=== PATIENT | female | born 1970 | race African-American/Black ===

== ENCOUNTER 2017-12-09 11:36 | Emergency (ER) | payer BC, OTHER ==
[~2017-12-09] VITALS: Ht 162.6 cm; Wt 108.9 kg
[~2017-12-09 11:36] MED LIST: ASPIRIN81 M2; BACTRIM DS TAB1 EACH PO; GLUCOPHAGE XR500 MG PO; LISINOPRIL-HCT1 EAC2 PO; NORCO 5-325 TA1 EACH PO; NORVASC 5 MG TAB5 MG PO; POTASSIUM20; VITAMIN K100 MCG
[2017-12-09 12:22] LABS: ABSOLUTE NEUTROPHILS 1.4 thou/uL (1.4-8.2); BASOPHILS 0.6 % (0.0-2.0); EOSINOPHILS 0.4 % (0.0-3.0); HEMOGLOBIN 12.3 gm/dL (12.0-15.0); LYMPHOCYTES 39.7 % (24.0-44.0); MCH 30.5 pg (26.0-34.0); MCHC 34.2 g/dL (28.0-37.0); MCV 89.1 fL (80.0-100.0); PLATELET COUNT 212 thou/uL (150-400); POLYS 47.3 % (36.0-66.0); RBC 4.04 mil/uL (4.20-5.00); RDW 13.8 % (10.5-14.5)
[2017-12-09 12:34] LABS: CALCIUM 9.2 mg/dL (8.5-10.1); CREATININE 0.9 mg/dL (0.6-1.0)
[2017-12-09] MEDS ORDERED: PROMETHAZINE-D118 ML PO (12:53)
[2017-12-09] MEDS ORDERED: DOXYCYCLINE 10100 MG PO (12:53)
[2017-12-09] MEDS ORDERED: NORVASC5 MG PO (12:53)
[2017-12-09] MEDS ORDERED: PREDNISONE 20 M20 MG PO (12:53)
[2017-12-09] MEDS ORDERED: POTASSIUM20 PO (12:54)
[2017-12-09 13:05] VITALS: BP 182/72
== END 2017-12-09 13:33 | disposition home or self-care (01) ==
LOC: ER 11:36
PROVIDERS: Physician Assistant
DX: R05 Cough (principal); I10 Essential (primary) hypertension; E87.6 Hypokalemia; R50.9 Fever, unspecified; J45.909 Unspecified asthma, uncomplicated; G47.30 Sleep apnea, unspecified; Z98.890 Other specified postprocedural states; F17.210 Nicotine dependence, cigarettes, uncomplicated

== ENCOUNTER 2019-03-12 12:43 | Emergency (ER) | payer OTHER ==
[~2019-03-12] VITALS: Ht 162.6 cm; Wt 108.9 kg
[~2019-03-12 12:43] MED LIST changes: +DOXYCYCLINE 10100 MG PO; +NORVASC5 MG PO; +POTASSIUM20 PO; +PREDNISONE 20 M20 MG PO; +PROMETHAZINE-D118 ML PO
[2019-03-12 14:06] LABS: BASOPHILS 1.2 % (0.0-2.0); EOSINOPHILS 2.3 % (0.0-3.0); HEMATOCRIT 38.8 % (37.0-47.0); HEMOGLOBIN 13.1 gm/dL (12.0-15.0); LYMPHOCYTES 32.3 % (24.0-44.0); MCH 30.7 pg (26.0-34.0); MCHC 33.7 g/dL (28.0-37.0); MCV 91.3 fL (80.0-100.0); MONOCYTES 6.9 % (1.0-8.0); PLATELET COUNT 308 thou/uL (150-400); POLYS 57.3 % (36.0-66.0); RBC 4.25 mil/uL (4.20-5.00); WBC 5.2 thou/uL (4.0-11.0)
[2019-03-12 14:11] LABS: CALCIUM 9.6 mg/dL (8.5-10.1); CREATININE 0.9 mg/dL (0.6-1.0); POTASSIUM 3.2 mmol/L (3.5-5.1)
[2019-03-12 14:18] LABS: ALBUMIN 3.9 g/dL (3.4-5.0); DIRECT BILIRUBIN 0.1 mg/dL (<0.1-0.2); TOTAL BILIRUBIN 1.1 mg/dL (<0.1-1.0); TOTAL PROTEIN 7.9 g/dL (6.4-8.2)
[2019-03-12] MEDS ORDERED: HYDROCHLOROTHIA25 M2 PO (15:15)
[2019-03-12] MEDS ORDERED: MECLIZINE HCL25 M1 PO (15:15)
--- NOTE | 2019-03-12 15:24 | EKG ---
[place] [address] [facility] [place] [address] ELECTROCARDIOGRAM REPORT Name: NICKIEELPIDIO [facility] [id number] Admission: 03/12/19 Attend Phys: Discharge: Date of : 68 Report #: [id number] THIS REPORT FOR: //name// [facility] ED Test Date: 2019-03-12 Test Time: 12:52:52 Pat Name: ELPIDIO FU Department: Room: Gender: F Mobile [facility] [place] [facility] 1970 Requested By: Zoey Lyle Order Number: [id number] MD: Kevin Hernandez Measurements Intervals [place] Rate: 102 P: 58 ND: 150 QRS: 37 QRSD: 100 T: 111 QT: 353 QTc: 460 Interpretive Statements Sinus tachycardia Left atrial enlargement Borderline repolarization abnormality Compared to ECG 10/04/2007 08:53:52 Atrial abnormality now present Electronically Signed On 03-12-2019 15:24:04 [employer] APPLICATION ADMINISTRATOR by Kevin Hernandez [email or web address] <ELECTRONICALLY SIGNED> By: Kevin Hernandez MD, [facility] 03/12/19 1524 1252 1252 Kevin Hernandez MD, FACC /EPI
[2019-03-12 15:44] VITALS: BP 221/107
== END 2019-03-12 15:55 | disposition home or self-care (01) ==
LOC: ER 12:43
PROVIDERS: Emergency Medicine
DX: I10 Essential (primary) hypertension (principal); R42 Dizziness and giddiness; F17.210 Nicotine dependence, cigarettes, uncomplicated; J45.909 Unspecified asthma, uncomplicated; G47.30 Sleep apnea, unspecified; Z98.890 Other specified postprocedural states

== ENCOUNTER 2020-01-26 08:53 | Emergency (ER) | payer OTHER ==
[~2020-01-26] VITALS: Ht 162.6 cm; Wt 111.1 kg
[~2020-01-26 08:53] MED LIST changes: +HYDROCHLOROTHIA25 M2 PO; +MECLIZINE HCL25 M1 PO
[2020-01-26] MEDS ORDERED: AMLODIPINE BESY10 MG PO (09:03)
[2020-01-26 10:15] VITALS: BP 187/93
--- NOTE | 2020-01-26 12:19 | EKG ---
[facility] [place] [address] ELECTROCARDIOGRAM REPORT Name: ELPIDIO FU Room #: [facility]#: [id number] Admission: 01/26/20 Attend Phys: Discharge: 01/26/20 Date of : 68 Report #: [id number] THIS REPORT FOR: cc: CESILIA - Puja family physician/PCP CESILIA - Puja family physician/PCP Aquiles Cameron MD [facility] ~ THIS REPORT FOR: //name// [facility] ED Test Date: 2020-01-26 Test Time: 09:55:22 Pat Name: ELPIDIO FU Department: Room: Gender: F Copy Clerk: : 1970 Requested By: Bryce Alonso Order Number: [id number] MD: Aquiles Cameron Measurements Intervals [place] Rate: 99 P: 54 AR: 153 QRS: 4 QRSD: 105 T: 44 QT: 386 QTc: 496 Interpretive Statements Sinus rhythm Probable left atrial enlargement Left ventricular hypertrophy Borderline prolonged QT interval Compared to ECG 03/12/2019 12:52:52 Left ventricular hypertrophy now present Sinus tachycardia no longer present Electronically Signed On 01-26-2020 12:19:15 INSURANCE FOLLOW UP REP by Aquiles Cameron [email or web address] <ELECTRONICALLY SIGNED> By: Aquiles Cameron MD, FACC 01/26/20 1219 0955 [id number] Aquiles Cameron MD, FAC /EPI
== END 2020-01-26 10:23 | disposition home or self-care (01) ==
LOC: ER 08:53
DX: R07.89 Other chest pain (principal); I10 Essential (primary) hypertension; J45.909 Unspecified asthma, uncomplicated; F17.210 Nicotine dependence, cigarettes, uncomplicated; Z98.890 Other specified postprocedural states; Z79.899 Other long term (current) drug therapy; V89.2XXA Person injured in unspecified motor-vehicle accident, traffic, initial encounter; Y93.I9 Activity, other involving external motion; Y92.488 Other paved roadways as the place of occurrence of the external cause; Y99.8 Other external cause status